=== PATIENT | female | born 2000 | race American Indian/Alaskan Native ===

== ENCOUNTER 2021-08-22 01:03 | Outpatient (CLI) | payer MEDICAID ==
[2021-08-22 02:04] VITALS: BP 100/59
== END 2021-08-22 02:47 | disposition home or self-care (01) ==
LOC: TRG 01:03 → APU 01:15 → TRG 02:47
PROVIDERS: ATTEND Student in an Organized Health Care Education/Training Program
DX: Z34.93 Encounter for supervision of normal pregnancy, unspecified, third trimester (principal); Z3A.39 39 weeks gestation of pregnancy
CPT/HCPCS: 59025